=== PATIENT | male | born 1935 | race Caucasian/White ===

== ENCOUNTER 2018-06-10 13:37 | Inpatient (IN) ==
[2018-06-10 14:21] LABS: Basophils % 0.8 % (0.0-0.8); Eosinophils # 0.4 10*3/uL (0.0-0.87); Eosinophils % 7.4 % (0.00-10.9); Hematocrit 41.9 VOL% (42.0-52.0); Hemoglobin 13.7 GM/DL (14.0-18.0); Immature Granulocytes % 0.2 %; Immature Granulocytes Absolute 0.01 #; Lymphocytes # 1.4 10*3/uL (1.4-4.0); Lymphocytes % 29.1 % (21.2-54.2); Mean Corpuscular HGB Conc 32.7 GM/DL (32-36); Mean Corpuscular Hemoglobin 31 PG (27-34); Mean Corpuscular Volume 93.3 FL (87-102); Mean Platelet Volume 10.3 FL (9.6-12.0); Monocytes # 0.3 10*3/uL (0.11-0.8); Monocytes % 6.7 % (1.7-12.7); Neutrophils # 2.7 10*3/uL (1.4-7.4); Neutrophils % 55.8 % (38.7-73.9); Platelet Count 172 T/CUMM (130-400); Red Blood Count 4.49 MC/CUMM (3.8-5.5); Red Cell Distribution Width 14.9 % (9.3-17.3); White Blood Count 4.8 T/CUMM (4-12)
[2018-06-10 14:44] LABS: Bilirubin,Total 0.6 MG/DL (0.2-1.0); Calcium 9.3 MG/DL (8.5-10.1); Osmolality,Calculated 290.8 MOS/KG (273-304); Potassium 4.1 MMOL/L (3.5-5.1); Total Protein 8.2 G/DL (6.4-8.3)
[2018-06-10 14:52] LABS: Apearance,Urine CLOUDY (Clear); Bacteria,Urine Many /HPF (Few); Bilirubin,Urine Negative (Negative); Blood, Urine Moderate mg/dL (Negative); Glucose,Urine (UA) Negative (Negative); Ketones,Urine Negative (Negative); Mucus,Urine Few /LPF (Occasional); Nitrite,Urine Positive (Negative); Protein,Urine 30 MG/DL; RBC,Urine 10 /HPF (0-4); Urine Color Yellow (Yellow); Urine Specific Gravity 1.015 (1.001-1.035); WBC,Urine 224 /HPF (0-6)
[2018-06-10] MEDS ORDERED: LEVOFLOXACIN INJ 750 MG in PREMIX 1 EACH IV STA (15:51)
[2018-06-10] MEDS ORDERED: ONDANSETRON 4 MG/2 ML VIAL IV PRN (16:29)
[2018-06-10] MEDS ORDERED: ACETAMINOPHEN 325 MG TABLET PO PRN (16:29)
[2018-06-10] MEDS: SODIUM CHLORIDE 0.9% 1,000 ML IV SCH (18:48)
[2018-06-10] MEDS: GABAPENTIN 300 MG CAPSULE PO SCH (20:35)
[2018-06-10] MEDS: QUEtiapine 25 MG TABLET PO SCH (20:35)
[2018-06-10] MEDS: CITALOPRAM 20 MG TABLET PO SCH (20:36)
[2018-06-10] MEDS: SENNA 8.6 MG TABLET PO SCH (20:36)
[2018-06-11 05:38] LABS: Basophils % 0.5 % (0.0-0.8); Eosinophils # 0.3 10*3/uL (0.0-0.87); Eosinophils % 5.6 % (0.00-10.9); Hematocrit 37.1 VOL% (42.0-52.0); Hemoglobin 12.4 GM/DL (14.0-18.0); Immature Granulocytes % 0.2 %; Immature Granulocytes Absolute 0.01 #; Lymphocytes # 1.6 10*3/uL (1.4-4.0); Lymphocytes % 28.9 % (21.2-54.2); Mean Corpuscular HGB Conc 33.4 GM/DL (32-36); Mean Corpuscular Hemoglobin 30 PG (27-34); Mean Corpuscular Volume 90.9 FL (87-102); Mean Platelet Volume 10.3 FL (9.6-12.0); Monocytes # 0.4 10*3/uL (0.11-0.8); Monocytes % 7.2 % (1.7-12.7); Neutrophils # 3.2 10*3/uL (1.4-7.4); Neutrophils % 57.6 % (38.7-73.9); Platelet Count 156 T/CUMM (130-400); Red Blood Count 4.08 MC/CUMM (3.8-5.5); Red Cell Distribution Width 14.8 % (9.3-17.3); White Blood Count 5.6 T/CUMM (4-12)
[2018-06-11 06:01] LABS: Calcium 8.8 MG/DL (8.5-10.1); Osmolality,Calculated 285.1 MOS/KG (273-304); Potassium 3.7 MMOL/L (3.5-5.1); Thyroid Stimulating Hormone 2.23 uIU/ml (0.358-3.74)
[2018-06-11] MEDS: FAMOTIDINE 20 MG TABLET PO SCH (06:11)
[2018-06-11] MEDS: SODIUM CHLORIDE 0.9% 1,000 ML IV SCH ×3 (06:11→22:05)
[2018-06-11] MEDS: MULTIVITAMIN (CENTRUM) TABLET PO SCH (09:17)
[2018-06-11] MEDS: OMEGA 3 ACID ETHYL ESTERS 1 GM CAPSULE PO SCH (09:17)
[2018-06-11] MEDS: SENNA 8.6 MG TABLET PO SCH ×2 (09:17→20:55)
[2018-06-11] MEDS: FINASTERIDE 5 MG TABLET PO SCH (09:17)
[2018-06-11] MEDS: GABAPENTIN 300 MG CAPSULE PO SCH ×3 (09:17→20:55)
[2018-06-11] MEDS: QUEtiapine 25 MG TABLET PO SCH (20:55)
[2018-06-11] MEDS: CITALOPRAM 20 MG TABLET PO SCH (20:55)
[2018-06-12] MEDS: FAMOTIDINE 20 MG TABLET PO SCH (05:54)
[2018-06-12] MEDS: OMEGA 3 ACID ETHYL ESTERS 1 GM CAPSULE PO SCH (09:19)
[2018-06-12] MEDS: MULTIVITAMIN (CENTRUM) TABLET PO SCH (09:19)
[2018-06-12] MEDS: FINASTERIDE 5 MG TABLET PO SCH (09:19)
[2018-06-12] MEDS: SENNA 8.6 MG TABLET PO SCH (09:20)
[2018-06-12] MEDS: GABAPENTIN 300 MG CAPSULE PO SCH (09:20)
[2018-06-12 12:32] VITALS: BP 111/85
== END 2018-06-12 13:49 | disposition hospice, home (50) | DRG 690 ==
LOC: N.ED 13:37 → N.EDINP 15:31 → N.2E 18:40
PROVIDERS: ADMIT Internal Medicine Geriatric Medicine; ATTEND Internal Medicine Geriatric Medicine